=== PATIENT | male | born 1990 | race Caucasian/White ===

== ENCOUNTER 2021-09-05 18:41 | Emergency (ER) | payer MEDICAID, OTHER ==
[~2021-09-05] VITALS: Ht 180.3 cm; Wt 99.8 kg
[2021-09-05 18:41] VITALS: BP 112/60
== END 2021-09-06 00:29 | disposition left against medical advice (07) ==
LOC: ER 18:41
DX: M79.10 Myalgia, unspecified site (principal); R51.9 Headache, unspecified; R11.2 Nausea with vomiting, unspecified; Z53.21 Procedure and treatment not carried out due to patient leaving prior to being seen by health care provider